=== PATIENT | female | born 1935 | race Two or more races ===

== ENCOUNTER 2019-01-07 12:42 | Outpatient (CLI) | payer OTHER ==
[2019-01-10] MEDS ORDERED: CLONAZEPAM0.5 M1 (12:30)
[2019-01-10] MEDS ORDERED: LOSARTAN POTASS25 MG (12:31)
== END 2019-01-07 14:13 | disposition home or self-care (01) ==
LOC: RAD 12:42
DX: K43.9 Ventral hernia without obstruction or gangrene (principal); I10 Essential (primary) hypertension